=== PATIENT | female | born 1990 | race Caucasian/White ===

== ENCOUNTER 2017-04-08 17:35 | Emergency (ER) | payer BC ==
[2017-04-08 18:14] VITALS: BP 132/71
--- NOTE | 2017-04-08 18:34 | UC ---
Bite Injury/Animal HPI - HPI Summary HPI Summary: Attempting to take a group home dog outside to the back porch after he growled at dog at home. She had him by the collar, when he turned and bit her right forearm , and then her left hand, leaving a number of puncture wounds. - History of Current Complaint Chief Complaint: UCBiteInjury Stated Complaint: DOG BITES Time Seen by Provider: 04/08/17 18:23 Hx Obtained From: Patient, Family/Dry Color Tester - here with her ana cristina. Hx Last Menstrual Period: 04/03/17 Severity Currently: Moderate Severity Initially: Moderate Pain Intensity: 7 Pain Scale Used: 0-10 Numeric Onset/Duration: Sudden Onset Type of Bite: Pet - dog who has been with the family for the past week Has Animal Been Immunized?: Yes - group home dog, will confirm that immunizations are up to date. Character: Puncture - numerous punctures. Aggravating Factor(s): Exertion Alleviating Factor(s): Rest Associated Signs And Symptoms: Positive: Swelling - ecchymosis forming right forearm Hx of Bite: Provoked by: - directing the dog by the collar Animal Available for Observation: Yes Animal Control Notified: Yes - Risk Factors Infection/Sepsis Risk Factors: Full-Thickness Puncture - Allergies/Home Medications Allergies/Adverse Reactions: Allergies Allergy/AdvReac Type Severity Reaction Status Date / Time Bromine Allergy Severe Difficulty Verified 04/08/17 18:02 Breathing Chlorine Allergy Severe Difficulty Verified 04/08/17 18:02 Breathing Adhesive Tape [Plastic Tape] Allergy Hives Verified 04/08/17 18:02 Latex Allergy Rash Verified 04/08/17 18:02 benzoperoxide Allergy Severe Difficulty Uncoded 04/08/17 18:02 Breathing oxycycline Allergy Severe Difficulty Uncoded 04/08/17 18:02 Breathing PMH/Surg Hx/FS Hx/Imm Hx Previously Healthy: Yes - Surgical History Surgical History: Yes Surgery Procedure, Year, and Place: L4-L5 removed at age 13 - Family History Known Family History: Positive: Unknown - no history to impact on today's assessment or injury - Social History Occupation: Employed Full-time - meter technician Lives: Alone Alcohol Use: Rare Substance Use Type: None Smoking Status (MU): Never Smoked Tobacco Review of Systems Constitutional: Negative Skin: Negative Eyes: Negative ENT: Negative Respiratory: Negative Cardiovascular: Negative Gastrointestinal: Negative Genitourinary: Negative Motor: Other - pain with movement of left second and third digits. Neurovascular: Negative Musculoskeletal: Negative Neurological: Negative Psychological: Other - feeling a little stunned by the injuries. All Other Systems Reviewed And Are Negative: Yes Physical Exam Triage Information Reviewed: Yes Appearance: Well-Appearing, Pain Distress - mild to moderate Vital Signs: Initial Vital Signs Temp 98.6 F 04/08/17 17:46 Pulse 99 04/08/17 17:46 Resp 16 04/08/17 17:46 BP 132/71 04/08/17 17:46 Pulse Ox 100 04/08/17 17:46 Vital Signs Reviewed: Yes ENT Exam: Normal Respiratory: Positive: Lungs clear, Normal breath sounds Cardiovascular: Positive: RRR, No Murmur Musculoskeletal: Positive: ROM Limited @ - left hand, pain with extension and flexion of digits 2 and 3, but no apparent tendon injury Neurological: Positive: Alert, Muscle Tone Normal Psychological Exam: Normal Skin Exam: Other - puncture wounds right forearm and left distal wrist and digits. Bite Injury Course/Dx - Course Course Of Treatment: augmentin for prevention of infection. tetanus is current. steristrips applied. - Differential Dx/Diagnosis Differential Diagnosis/HQI/PQRI: Puncture Provider Diagnoses: multiple punctures from dog bite Discharge - Discharge Plan Condition: Stable Disposition: HOME Prescriptions: Amoxicillin/Clavulanate TAB* [Augmentin TAB 875*] 875 mg PO BID #14 tab Patient Education Materials: Animal Bite (ED) Forms: *Work Release Additional Instructions: Even with early preventative antibiotics, there remains a risk of infection. Increasing swelling and pain should be reassessed promptly, and if you are funning a fever I suggest evaluation in the emergency room. Confirm that your tetanus booster was given last year. Use ibuprfen 600 to 800 mg every 6 to 8 ours for control of pain You have hydrocodone to use before bed tonight if needed. Off work tomorrow and possibly Sunday. Images Hands: 1 - 6 mm laceration, steristrips applied 2 - 5 mm puncture, steristrips applied 3 - 9 mm puncture, steristrips applied. 4 - 9mm superficial across knuckle, finger dressing 5 - jagged 5 mm, steristrips applied. 6 - full skin defect to fat pad, 3 x 2 mm, finger dressing applied 7 - superficial 4 mm, no dressing 8 - 2 mm puncture, digit with swelling, wound dressing applied.
[2017-04-08] MEDS ORDERED: Amoxicillin/Clavulanate TAB* 875 MG PO ONE ×2 (18:54→18:55)
[2017-04-08] MEDS ORDERED: HYDROcodone/ACETAMIN 5-325 MG* 1 TAB PO ONE (18:56)
[2017-04-08] MEDS ORDERED: Ibuprofen TAB* 400 MG PO ONE (18:56)
== END 2017-04-08 19:47 | disposition home or self-care (01) ==
LOC: UCCORT 17:35
DX: S51.831A Puncture wound without foreign body of right forearm, initial encounter (principal); W54.0XXA Bitten by dog, initial encounter; Y93.89 Activity, other specified; Y92.9 Unspecified place or not applicable
CPT/HCPCS: 99213; A9270-GY; G0463

== ENCOUNTER 2018-11-01 05:52 | Day surgery (SDC) | payer BC ==
[~2018-11-01 05:52] MED LIST: Buffered Lidocaine 1% SYRIN* 1 ML/SYRINGE INTRADERM ONE; Dexamethasone IV* 4 MG/ML 1 ML (4 MG) IV SLOW PU ONE; Famotidine IV* 10 MG/ML 2 ML (20 mg) IV SLOW PU ONE
[2018-11-01] MEDS ORDERED: Dexamethasone IV* 4 MG/ML 1 ML (4 MG) ONE (06:32)
[2018-11-01] MEDS ORDERED: Famotidine IV* 10 MG/ML 2 ML (20 mg) ONE (06:33)
[2018-11-01] MEDS ORDERED: Buffered Lidocaine 1% SYRIN* 1 ML/SYRINGE INTRADERM ONE (06:33)
[2018-11-01] MEDS ORDERED: Vancomycin 1500 MG IV - x ONCE IVPB ONE ×2 (07:00)
[2018-11-01] MEDS: Lactated Ringers 1000 ML Bag* 1,000 ML IV SCH ×2 (07:05→16:52)
[2018-11-01] MEDS ORDERED: Thrombin 5,000 UNITS* 1 APPLIC KIT - topical use - TOPICAL ONE (07:13)
[2018-11-01] MEDS ORDERED: Bacitracin IV* 50,000 UNITS INJ ONE (07:13)
[2018-11-01] MEDS ORDERED: Lidocain 1% EPI 1:100,000 * 30 ML MDV ONE (07:13)
[2018-11-01] MEDS ORDERED: Midazolam* 1 MG/ML 2 ML VIAL (2 MG) ONE ×2 (07:19→08:24)
[2018-11-01] MEDS ORDERED: fentaNYL* 50 MCG/ML 2 ML VIAL (100 MCG VIAL) ONE ×2 (07:19→11:00)
[2018-11-01] MEDS ORDERED: Propofol* 10 MG/ML 20 ML BTL ONE (07:19)
[2018-11-01] MEDS ORDERED: Rocuronium* 10 MG/ML VIAL ONE (07:20)
[2018-11-01] MEDS ORDERED: Lidocaine 2% PF * 5 ML VIAL ONE (07:20)
[2018-11-01] MEDS ORDERED: Glycopyrrolate IV* 0.2 MG/ML 1 ML VIAL ONE (08:50)
[2018-11-01] MEDS ORDERED: Neostigmine Methylsulfate* 1 MG/ML 10 ML VIAL (1 mg/ml) ONE (08:50)
[2018-11-01] MEDS ORDERED: Ketorolac INJ* 30 MG/ML 1 ML VIAL ONE (09:35)
[2018-11-01] MEDS ORDERED: Ondansetron INJ* 2 MG/ML VIAL IV PRN ×2 (09:51→14:31)
[2018-11-01] MEDS ORDERED: Naloxone* 0.4 MG/ML 1 ML VIAL IV PRN (09:51)
[2018-11-01] MEDS ORDERED: HYDROcodone/ACETAMIN 5-325 MG* 1 TAB PO PRN ×2 (10:20)
[2018-11-01] MEDS ORDERED: Acetaminophen TAB* 325 MG PO PRN (10:20)
[2018-11-01] MEDS ORDERED: Magnesium Hydroxide LIQ* 30 ML UDC PO PRN (10:20)
[2018-11-01] MEDS ORDERED: Zolpidem TAB* 10 MG PO PRN (10:20)
[2018-11-01] MEDS ORDERED: Ondansetron INJ* 2 MG/ML VIAL ONE (11:00)
[2018-11-01] MEDS: fentaNYL* 50 MCG/ML 2 ML VIAL (100 MCG VIAL) IV PRN ×2 (11:02→11:29)
[2018-11-01] MEDS ORDERED: DiMENhydriNATE IV* 50 MG/ML VIAL ONE (11:26)
[2018-11-01] MEDS ORDERED: DiMENhydriNATE IV* 50 MG/ML VIAL IV PUSH ONE (11:26)
--- NOTE | 2018-11-01 11:53 | OP ---
OPERATIVE REPORT: DATE OF OPERATION: 11/01/18 DATE OF : [birth year] SURGEON: Dr. Latoya Byrd. ANESTHESIA: General. PRE-OP DIAGNOSIS: Right L5-S1 herniated nucleus pulposus. POST-OP DIAGNOSIS: Right L5-S1 herniated nucleus pulposus. OPERATIVE PROCEDURE: Patient underwent right L5-S1 MIS diskectomy with L5 partial laminectomy and extended right S1 foraminotomy. ESTIMATED BLOOD LOSS: 10 cc. COMPLICATIONS: None. SUMMARY: Patient is a very pleasant 28-year-old female with a history of right L4- [address] Cai several years ago. Patient presented with back pain radiating to the right lower extremity with right S1 radiculopathy. After failing conservative treatment modalities, she was offered the option of the above procedure. After explaining the expectation, limitation, and possible complication of the procedure to the patient and her parents with complications including but not limited to bleeding, infection, risk of injury to adjacent structures, paralysis, , need for additional procedures, anesthesia risks, stroke, blindness, cancer, instability, adjacent-level disease, recurrent disk herniation, spinal fluid leak, injury to abdominal contents, patient and her family were agreeable to proceed with surgery and informed consent was obtained. Patient understood that her condition will not improve and, in fact, may get worse after surgery and that she may need to have additional procedures in the future. She also understood that the operative plan may be modified according to the intraoperative findings and conditions and that the case may be abandoned or done in more than 1 stage. DESCRIPTION OF PROCEDURE: Patient was brought to the operating room, was placed on general anesthesia by the anesthesia team. She was carefully positioned prone on a Aneesh frame on the Aryan table and all bony prominences were meticulously padded. Her skin was prepped and draped in the standard fashion. After appropriate surgical pause and patient identification, a small right paramedian incision over the L5-S1 disk space was marked on the skin with the assistance of intraoperative fluoroscopic imaging. The skin was infiltrated with local anesthetic and a #10 surgical blade was used to incise the skin. Incision was carried down to the subcutaneous tissue with Bovie cautery and the dorsal fascia was then divided with a surgical knife. Over a series of dilators, the [employer] retractor system was introduced into the field and intraoperative fluoroscopic imaging confirmed placement of tube in the appropriate level. Microscope was brought into the field and after removing the remaining paraspinal muscle fibers of the right allen lamina of L5, a high- speed drill was used to fashion a hemilaminotomy and partial laminectomy which was extended to the other side in order to provide more room for safe retraction. A small partial facetectomy was also performed and after gently retracting the ligamentum flavum, the thecal sac as well as the right S1 nerve root was identified. The nerve root was gently retracted medially with a nerve root retractor and a large disk herniation was identified under the thecal sac and under the posterior longitudinal ligament. A #15 surgical blade was used to incise the annulus fibrosus and a standard diskectomy was performed with the use of pituitary rongeurs. At the end of the procedure, the thecal sac and the nerve root were found to be free of any pressure phenomenon. After copious irrigation and meticulous hemostasis, the nerve root retractor was removed and foraminotomy of the S1 level was performed with Kerrison punches. The foramina was found to be patent at the end of the foraminotomy and after copious irrigation, confirmation of meticulous hemostasis and meticulous inspection, the tubular retractor was gently removed. The dorsal fascia was approximated with interrupted 0-Vicryl sutures while the subcutaneous tissue was approximated with interrupted 2- 0 Vicryl sutures. The skin was covered with Dermabond. At the end of the procedure, all counts were reported to be correct. The patient remained hemodynamically stable throughout the case and was then turned supine, was extubated, and was transferred to recovery in excellent condition. [id number]/[facility] #: [id number] MIRA
[2018-11-01] MEDS: Ondansetron INJ* 2 MG/ML VIAL IV PRN (23:10)
[2018-11-02] MEDS: Ondansetron INJ* 2 MG/ML VIAL IV PRN (07:30)
[2018-11-02 07:44] VITALS: BP 112/42
--- NOTE | 2018-11-02 10:57 | PN ---
Progress Note - Progress Note Date of Service: 11/02/18 SOAP: Subjective: []No events ON. Tolerated procedure well yesterday. Rt LE pain and numbness resolved. Ambulates. Tolerates PO well. Voids. Wants to go home. Objective: []VSS, Afebrile. Wound s,c,d AAOx3, MARILUZ, CN II-XII grossly intact Motor 5/5 except Rt EHL 3-4/5 ( present preop since previous surgical intervention) Sensory grossly intact to light touch Assessment: []28 yof POD#1 Rt L5-S1 MIS discectomy Plan: []Monitor VS, Neurochecks Encourage ambulation DC planning Full instructions were given. Ashwin Byrd MD
--- NOTE | 2018-11-02 12:43 | DS ---
DISCHARGE SUMMARY: DATE OF ADMISSION: 11/01/18 DATE OF DISCHARGE: 11/02/18 ADMISSION DIAGNOSIS: Herniated nucleus pulposus. DISCHARGE DIAGNOSIS: Herniated nucleus pulposus. DISPOSITION: Home. CONDITION ON DISCHARGE: Good. SUMMARY: The patient is a very pleasant 28-year-old female with history of right L4-[address] Cai several years ago. The patient presented with back pain radiating to the right lower extremity with right S1 radiculopathy. MRI revealed a large right L5-S1 herniated disc. After failing conservative modalities, she was offered the option of surgical intervention in the form a right L5-S1 diskectomy. The patient underwent the above procedure, tolerated the procedure well and was able to be transferred to the regular floor. She continued to improve. On postop day 1, her preoperative right lower extremity pain and numbness had completely resolved. She was able to ambulate, tolerating p.o. well, and she was able to void, and she was considered to be ready to be discharged. Full instructions were given. [id number]/[facility] #: [id number] MIRA
== END 2018-11-02 11:37 | disposition home or self-care (01) ==
LOC: OR 05:52 → SSU 10:20 → OR 11:09
PROVIDERS: ATTEND Neurological Surgery
DX: M51.36 Other intervertebral disc degeneration, lumbar region (principal); M51.16 Intervertebral disc disorders with radiculopathy, lumbar region; M51.26 Other intervertebral disc displacement, lumbar region; Z68.31 Body mass index [BMI] 31.0-31.9, adult
CPT/HCPCS: 76000; 81025; A9270-GY; J1100; J1240; J1885; J2250; J2405; J2704; J2710; J3010; J3370

== ENCOUNTER 2019-03-21 09:46 | Observation (INO) | payer BC ==
[~2019-03-21 09:46] MED LIST changes: +Cisatracurium* 2 MG/ML MDV 5 ML ONE; -Dexamethasone IV* 4 MG/ML 1 ML (4 MG) IV SLOW PU ONE; +Dexamethasone IV* 4 MG/ML 1 ML (4 MG) ONE; +Famotidine IV* 10 MG/ML 2 ML (20 mg) IV ONE; -Famotidine IV* 10 MG/ML 2 ML (20 mg) IV SLOW PU ONE; +KETAMINE HCL* 50 MG/ML 10 ML VIAL ONE; +Lactated Ringers 1000 ML Bag* 1,000 ML IV SCH; +Lidocaine 2% PF * 5 ML VIAL ONE; +Midazolam* 1 MG/ML 5 ML VIAL (5 MG) ONE; +Ondansetron INJ* 2 MG/ML VIAL ONE; +Propofol* 10 MG/ML 20 ML BTL ONE; +Vancomycin(*) 1,250 MG IV x ONCE IVPB ONE; +fentaNYL* 50 MCG/ML 2 ML VIAL (100 MCG VIAL) ONE
[2019-03-21] MEDS ORDERED: Buffered Lidocaine 1% SYRIN* 1 ML/SYRINGE INTRADERM ONE (09:52)
[2019-03-21] MEDS ORDERED: Famotidine IV* 10 MG/ML 2 ML (20 mg) ONE (09:52)
[2019-03-21] MEDS ORDERED: Lidocaine 1% w EPI 1:200,000* 30 ML VIAL ONE (10:24)
[2019-03-21] MEDS ORDERED: Thrombin 5,000 UNITS* 1 APPLIC KIT - topical use - TOPICAL ONE ×2 (10:24→11:49)
[2019-03-21] MEDS ORDERED: Bacitracin INJECTION* 50,000 UNITS ONE (10:24)
[2019-03-21] MEDS ORDERED: Scopolamine 1.5 mg* PATCH ONE (10:43)
[2019-03-21] MEDS ORDERED: Artificial Tear OPHTH.OINT* 3.5 GM ONE (10:46)
[2019-03-21] MEDS ORDERED: Remifentanil* 2 MG VIAL ONE ×4 (11:06→14:01)
[2019-03-21] MEDS ORDERED: Propofol* 1,000 MG/100 ML BTL ONE ×2 (11:56→12:48)
[2019-03-21] MEDS ORDERED: Ondansetron INJ* 2 MG/ML VIAL IV PRN (12:22)
[2019-03-21] MEDS ORDERED: Naloxone* 0.4 MG/ML 1 ML VIAL IV PRN (12:22)
[2019-03-21] MEDS ORDERED: oxyCODONE/Acetamin 5/325 MG* TAB PO PRN (12:22)
[2019-03-21] MEDS ORDERED: HYDROmorphone INJ1* 1 MG/ML SYRINGE IV PRN (12:22)
[2019-03-21] MEDS ORDERED: Midazolam* 1 MG/ML 2 ML VIAL (2 MG) ONE (12:59)
[2019-03-21] MEDS ORDERED: HYDROmorphone INJ1* 1 MG/ML SYRINGE ONE (14:34)
[2019-03-21] MEDS ORDERED: Magnesium Hydroxide LIQ* 30 ML UDC PO PRN (14:50)
[2019-03-21] MEDS ORDERED: ETONOGESTREL 68 MG IMPLANT SCH (15:00)
[2019-03-21] MEDS ORDERED: fentaNYL* 50 MCG/ML 2 ML VIAL (100 MCG VIAL) ONE (15:06)
[2019-03-21] MEDS: fentaNYL* 50 MCG/ML 2 ML VIAL (100 MCG VIAL) IV PRN ×2 (15:07→15:13)
[2019-03-21] MEDS ORDERED: Ondansetron INJ* 2 MG/ML VIAL ONE (15:32)
[2019-03-21] MEDS ORDERED: PROCHLORPERAZINE INJ 5 MG/ML 2 ML VIAL ONE (16:00)
[2019-03-21] MEDS: Lactated Ringers 1000 ML Bag* 1,000 ML IV SCH (17:02)
[2019-03-21] MEDS ORDERED: traMADol TAB* 50 MG PO PRN (18:49)
[2019-03-21] MEDS ORDERED: Ketorolac TAB * 10 MG TAB PO PRN (18:59)
--- NOTE | 2019-03-21 20:45 | OP ---
OPERATIVE REPORT: DATE OF OPERATION: 03/21/19 DATE OF : [birth year] SURGEON: Latoya Byrd MD. MIXER MACHINE FEEDER: LASHELL Ackerman. The case was done with the assistance of surgical PA because of the complexity of the case. ANESTHESIA: General. PRE-OP DIAGNOSIS: Recurrent right L4-5 disk herniation. POST-OP DIAGNOSIS: Recurrent right L4-5 disk herniation. OPERATIVE PROCEDURE: The patient underwent revision of right L4-5 lumbar microdiskectomy with medial partial facetectomy, extended foraminotomy, and lysis of adhesions at L4-5. ESTIMATED BLOOD LOSS: 5 cc. COMPLICATIONS: None. INDICATIONS: This is a very pleasant 28-year-old female who has a history of previous right L4-[address] Cai when she was 11 years old. During the procedure at that time, there was an incident of durotomy. The patient recently underwent right L5-S1 MIS diskectomy and did extremely well from that procedure. Unfortunately, she developed recurrence of her right lower extremity pain similar to what she was experiencing prior to her previous right L4-5 laminectomy, and MRI of the lumbar spine revealed right L4-5 disk herniation. After failing conservative treatment modalities, the patient was offered the option of surgical intervention. Discussed in extent with the patient and her family including her father and her mother regarding indications , expectations, limitations and possible complications of the procedure with complications including, but not limited to, bleeding, infection, risk of injury to adjacent structures, coma, paralysis, , need for additional procedures, anesthesia risks, stroke, blindness, cancer, instability, spinal fluid leak, injury to intraabdominal contents, loss of bladder or bowel function , postoperative hematoma, scar formation, injury to bowel, need for prolonged ICU stay or prolonged hospitalization or prolonged rehabilitation, deep venous thrombosis, pulmonary embolism, anesthesia risks. The patient understood that her condition may not improve and may in fact get worse after surgery. She also understood that the operative plan may be modified according to intraoperative findings and conditions and that the procedure may be abandoned or done in more than 1 stages. She understood also she may require prolonged ICU stay, need for tracheostomy, gastrostomy, or need for prolonged hospitalization or rehabilitation. DESCRIPTION OF PROCEDURE: The patient was brought to the operating room and was placed under general anesthesia by the anesthesia team. She was carefully positioned prone on the Aneesh frame, on the Aryan table and all bony prominences were meticulously padded. The skin was prepped and draped in a standard fashion, and after appropriate surgical pause and patient identification, the previous incision from the laminectomy at L4-5 was identified in the skin and the appropriate surgical level was confirmed with intraoperative fluoroscopic imaging. The skin was infiltrated with local anesthetic and a #10 surgical blade was used to incise the skin at that level. The incision was carried down through subcutaneous tissue with Bovie cautery and self-retaining retractor introduced into the field. The dorsal fascia was divided in the right side of the midline with the use of Bovie cautery and the paraspinal musculature was elevated in subperiosteal fashion with the use of periosteal elevator and Bovie cautery. Ruth self-retaining retractors were introduced into the field and microscope was brought into the field. The lamina of L4 on the right was exposed as well as L4-5 facet. A significant amount of scar tissue from the previous laminectomy was encountered. After careful dissection and exposure of the lamina and the facet, high-speed drill was used to perform a partial laminotomy as well as partial and medial facetectomy. This was performed under microscopic magnification and completed with Kerrison punches. The thecal sac was exposed cephalad into healthy normal level, and after meticulous dissection with a series of curettes and Kerrison punches, minimal medial facetectomy was completed and the right L5 nerve root was identified and carefully exposed. Extensive foraminotomy was performed at that time. Then attention was brought to identify the disk space. After careful dissection of the extensive scar tissue and lysis of adhesions, the thecal sac and the nerve root were gently retracted medially with nerve root retractor, and after incising the annulus fibrosis with a 15 surgical blade, diskectomy was performed at the right L4-5 level. The diskectomy was performed with the use of pituitary rongeurs, and down pushing curettes. A very large disk fragment was identified in the initial stages of the diskectomy, at the expected area based on the preoperative MRI, and was removed . After completion of diskectomy, the thecal sac and the nerve root was found to be free of any pressure phenomenon. After copious irrigation and confirmation of meticulous hemostasis and meticulous inspection, Ruth retractor was then gently removed and the wound was closed in layers with 0 interrupted Vicryl suture to approximate the dorsal fascia, 2-0 inverted interrupted Vicryl sutures to approximate the subcutaneous tissue. The skin was covered with Dermabond, and at the end of the procedure, all counts were reported to be correct. The patient remained hemodynamically stable throughout the case, intraoperative electrophysiological monitoring was stable throughout the case. The skin was covered with Dermabond and sterile dressings. The patient was then turned supine, was extubated, and was transferred to Recovery in excellent condition. The case was done with the assistance of surgical PA because of the complexity of the case. [id number]/[facility] #: [id number] MTDD
[2019-03-22] MEDS: Lactated Ringers 1000 ML Bag* 1,000 ML IV SCH (06:14)
[2019-03-22 07:31] VITALS: BP 99/48
[2019-03-22] MEDS ORDERED: BIRTH CONTROL PILL PO SCH (09:00)
--- NOTE | 2019-03-22 11:02 | PN ---
Progress Note - Progress Note Date of Service: 03/22/19 SOAP: Subjective: 28 y/o female post revision of microdiscetomy POD #1 patient doing well. Her pain is well managed with Tramadol, she has been able to ambulate independently , She reports that her radicular symptoms have improved, patient indicates would like to go home. Objective: Vital Signs - 12 hr Temp Pulse Resp BP Pulse Ox 03/22/19 07:49 18 03/22/19 07:30 98.7 F 70 16 99/48 98 03/22/19 04:07 98.1 F 97 20 112/50 99 03/21/19 23:09 98.5 F 78 19 118/52 99 Physical Exam: Patient sitting comfortable at edge of bed, mother is sitting at bedside, NAD Neuro: GCS 15, A&O x3, CN II- XII grossly intact, Sensation intact throughout Motor strength 5/5 through out. Assessment: 28/ y/o female post revision of microdiscetomy at L4/L5 POD#1 patient tolerated surgery well, she is stable is ready for discharge. Plan: 1) discharge home follow up in [facility] clinic in 1 week.
== END 2019-03-22 11:15 | disposition home or self-care (01) ==
LOC: OR 09:46 → SSU 17:00
PROVIDERS: ADMIT Neurological Surgery; ATTEND Neurological Surgery
DX: M51.16 Intervertebral disc disorders with radiculopathy, lumbar region (principal); Z88.0 Allergy status to penicillin
CPT/HCPCS: 76000; 96360; 96361; A9270-GY; G0378; J0780; J1100; J1170; J2001; J2250; J2405; J2704; J3010; J3370

== ENCOUNTER 2021-03-23 05:59 | Inpatient (IN) ==
[~2021-03-23 05:59] MED LIST changes: -Buffered Lidocaine 1% SYRIN* 1 ML/SYRINGE INTRADERM ONE; -Cisatracurium* 2 MG/ML MDV 5 ML ONE; -Dexamethasone IV* 4 MG/ML 1 ML (4 MG) ONE; -Famotidine IV* 10 MG/ML 2 ML (20 mg) IV ONE; -KETAMINE HCL* 50 MG/ML 10 ML VIAL ONE; -Lactated Ringers 1000 ML Bag* 1,000 ML IV SCH; -Lidocaine 2% PF * 5 ML VIAL ONE; -Midazolam* 1 MG/ML 5 ML VIAL (5 MG) ONE; -Ondansetron INJ* 2 MG/ML VIAL ONE; -Propofol* 10 MG/ML 20 ML BTL ONE; +Vancomycin 1,750 MG in NS 0.9% 500 ml BAG 500 ML IVPB SCH; -Vancomycin(*) 1,250 MG IV x ONCE IVPB ONE; -fentaNYL* 50 MCG/ML 2 ML VIAL (100 MCG VIAL) ONE
[2021-03-23] MEDS ORDERED: Lactated Ringers 1000 ml BAG 1,000 ML IV SCH (06:00)
[2021-03-23] MEDS ORDERED: Buffered Lidocaine 1% SYRIN 1 ml INTRADERM ONE ×2 (06:00→06:23)
[2021-03-23] MEDS ORDERED: Lidocaine 2% PF 5 ML VIAL ONE (07:01)
[2021-03-23] MEDS ORDERED: Remifentanil 2 MG VIAL ONE ×4 (07:01→13:47)
[2021-03-23] MEDS ORDERED: fentaNYL 250 mcg/5 ml 50 MCG/ML 5 ml VIAL (250 MCG) ONE (07:01)
[2021-03-23] MEDS ORDERED: Propofol 10 MG/ML 20 ML BTL ONE ×3 (07:01→10:14)
[2021-03-23] MEDS ORDERED: Midazolam 2 mg/2 ml VIAL 1 mg/ml 2 ml VIAL (2 mg) ONE (07:01)
[2021-03-23] MEDS ORDERED: Bupivacaine 0.25% EPI 200,000 30 ML SDV ONE (07:16)
[2021-03-23] MEDS ORDERED: Bacitracin INJECTION (manuf dc) 50,000 UNITS ONE (07:16)
[2021-03-23] MEDS ORDERED: Acetaminophen IV 1 GM/100ML 100 ML IV PRN (08:36)
[2021-03-23] MEDS ORDERED: HYDROmorphone 1 MG/1 ML SYRINGE IV PRN (08:36)
[2021-03-23] MEDS ORDERED: Ondansetron 4 mg VIAL 2 MG/ML 2 ml VIAL IV PRN ×2 (08:36→15:22)
[2021-03-23] MEDS ORDERED: DiMENhydriNATE IV 50 mg/ml 1 ml VIAL IV PUSH PRN (08:36)
[2021-03-23] MEDS ORDERED: fentaNYL 100 mcg/2 ml 50 MCG/ML VIAL IV PRN (08:36)
[2021-03-23] MEDS ORDERED: Naloxone 0.4 mg VIAL 0.4 mg/ml 1 ml VIAL IV PRN (08:36)
[2021-03-23] MEDS ORDERED: diPHENhydraMINE IV 50 MG/ML 1 ml VIAL (BENADRYL) ONE ×2 (08:40→08:55)
[2021-03-23] MEDS ORDERED: Dexamethasone IV 4 MG/ML VIAL 1 ml VIAL ONE (08:55)
[2021-03-23] MEDS ORDERED: Ondansetron 4 mg VIAL 2 MG/ML 2 ml VIAL ONE ×2 (08:55→14:51)
[2021-03-23] MEDS ORDERED: Propofol 10 mg/ml 100 ML BTL 300 ML ONE (10:35)
[2021-03-23] MEDS ORDERED: Phenylephrine IV 10 MG/ML 1 ml VIAL ONE (11:55)
[2021-03-23] MEDS ORDERED: HYDROmorphone 1 MG/1 ML SYRINGE ONE ×2 (14:03→14:50)
[2021-03-23] MEDS ORDERED: fentaNYL 100 mcg/2 ml 50 MCG/ML VIAL ONE (14:50)
[2021-03-23] MEDS ORDERED: HYDROcodone/ACETAMIN 5/325 mg TAB PO PRN (15:22)
[2021-03-23] MEDS ORDERED: Magnesium Hydroxide LIQ 30 ML UDC PO PRN (15:22)
[2021-03-23] MEDS ORDERED: DiMENhydriNATE IV 50 mg/ml 1 ml VIAL ONE (15:53)
[2021-03-23] MEDS: HYDROcodone/ACETAMIN 5/325 mg TAB PO PRN (18:12)
[2021-03-24] MEDS: HYDROcodone/ACETAMIN 5/325 mg TAB PO PRN ×3 (00:07→09:02)
[2021-03-24 07:29] VITALS: BP 104/64
== END 2021-03-24 09:55 | disposition home or self-care (01) | DRG 304 ==
LOC: AA 05:59 → SSU 15:22
PROVIDERS: ADMIT Neurological Surgery; ATTEND Neurological Surgery